=== PATIENT | female | born 2000 | race Caucasian/White ===

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

== ENCOUNTER 2021-02-18 15:18 | Outpatient (REF) | payer OTHER, SELFPAY ==
[2021-02-18 20:07] LABS: Glucose 90 mg/dL (74-106); TSH 1.51 uIU/mL (0.52-4.13)
== END 2021-02-18 15:19 | disposition home or self-care (01) ==
LOC: NCHCN 15:18
PROVIDERS: PCP Physician Assistant Medical; Visit Provider Nurse Practitioner Family
DX: R53.83 Other fatigue (principal); R42 Dizziness and giddiness
CPT/HCPCS: 82947; 84443

== ENCOUNTER 2021-10-31 11:30 | Outpatient (CLI) | payer OTHER, SELFPAY ==
[2021-10-31 12:29] LABS: Abs Immature Grans 0.01 10^3/uL (0.0-0.06); Absolute Basophil Count 0.01 10^3/uL (0.0-0.2); Absolute Eosinophil Count 0.07 10^3/uL (0.0-0.7); Absolute Lymphocyte Count 1.55 10^3/uL (1.2-3.4); Absolute Monocyte Count 0.38 10^3/uL (0.1-0.8); Absolute Neutrophil Count 5.02 10^3/uL (1.2-6.7); Basophils % 0.1; HCT 34.3 % (36.0-46.0); HGB 12.1 g/dL (11.2-15.7); Immature Grans % 0.1; MCH 32.6 pg (27.0-33.0); MCHC 35.3 % (32.0-36.0); MCV 93 fL (80-95); MPV 10.9 fL (8.0-11.0); Monocytes % 5.4; Neutrophils % 71.4; Platelet Count 145 10^3/uL (130-400); RBC 3.71 10^6/uL (3.93-5.22); RDW 12.6 % (11.7-14.6); RDW-SD 42.5 fL; WBC 7.04 10^3/uL (4.4-10.8)
[2021-10-31 13:19] LABS: TSH (W/Ref FT4) 0.77 uIU/mL (0.36-3.74)
[2021-11-01 08:54] LABS: Hepatitis B Surface Ag Negative (Negative)
[2021-11-01 09:31] LABS: HIV-1/2 Ag & Ab Screen Negative (Negative)
[2021-11-01 09:49] LABS: Hepatitis C Ab w Rflx HCV PCR Negative (Negative)
[2021-11-01 11:17] LABS: Varicella IgG Antibody Positive (See Note)
[2021-11-01 11:22] LABS: Rubella IgG Ab (UVM) Positive (See Note)
[2021-11-01 18:50] LABS: Syphilis IgG w/Reflex Nonreactive (Nonreactive)
== END 2021-10-31 11:31 | disposition home or self-care (01) ==
LOC: LBO 11:30
PROVIDERS: PCP Physician Assistant Medical; Visit Provider Advanced Practice Midwife
DX: Z34.91 Encounter for supervision of normal pregnancy, unspecified, first trimester; F41.9 Anxiety disorder, unspecified
CPT/HCPCS: 36415; 86787; 86803; 86850; 86900; 86901; 87340; 87389; 84443; 85025; 86762; 86780; 87086

== ENCOUNTER 2021-10-31 18:35 | Outpatient (REF) | payer OTHER, SELFPAY ==
[2021-10-31 15:36] LABS: *AMPHETAMINES SCREEN URINE Negative (Negative); *BARBITURATES SCREEN URINE Negative (Negative); *BENZODIAZEPINES SCREEN URINE Negative (Negative); Cannabinoids THC Negative (Negative); Cocaine Screen,Urine Negative (Negative); METHADONE URINE SCREEN Negative (Negative); OPIATES URINE SCREEN Negative (Negative)
[2021-10-31 15:37] LABS: Tricyclic Antidepressants Negative (Negative)
[2021-11-07 11:50] LABS: Buprenorphine Negative ng/mL (Cutoff: 5.0); Norbuprenorphine Negative ng/mL (Cutoff: 2.5)
== END 2021-10-31 18:36 | disposition home or self-care (01) ==
LOC: LBN 18:35
PROVIDERS: PCP Physician Assistant Medical; Visit Provider Advanced Practice Midwife
DX: Z34.91 Encounter for supervision of normal pregnancy, unspecified, first trimester (principal); Z3A.13 13 weeks gestation of pregnancy
CPT/HCPCS: 80307; 87086

== ENCOUNTER 2022-01-28 15:16 | Outpatient (REF) | payer OTHER, MEDICAID, SELFPAY | END 2022-01-28 15:17 | disposition home or self-care (01) | LOC: LBN 15:16 | PROVIDERS: PCP Physician Assistant Medical; Visit Provider Advanced Practice Midwife | DX: M54.9 Dorsalgia, unspecified (principal); O99.891 Other specified diseases and conditions complicating pregnancy; N89.8 Other specified noninflammatory disorders of vagina; O26.892 Other specified pregnancy related conditions, second trimester | CPT/HCPCS: 87077; 87086; 87186; 87480; 87510; 87660 ==

== ENCOUNTER 2022-02-11 03:28 | Outpatient (CLI) | payer OTHER, MEDICAID, SELFPAY ==
[2022-02-11 15:47] LABS: HCT 30.5 % (36.0-46.0); HGB 10.3 g/dL (11.2-15.7); MCHC 33.8 % (32.0-36.0); MCV 98 fL (80-95); MPV 10.7 fL (8.0-11.0); Platelet Count 191 10^3/uL (130-400); RBC 3.12 10^6/uL (3.93-5.22); RDW 12.9 % (11.7-14.6); RDW-SD 45.4 fL; WBC 10.25 10^3/uL (4.4-10.8)
[2022-02-11 16:38] LABS: Glucose,1 Hr (Glucola) 99 mg/dL (80-140)
== END 2022-02-11 03:29 | disposition home or self-care (01) ==
LOC: LBO 03:28
PROVIDERS: PCP Physician Assistant Medical; Visit Provider Advanced Practice Midwife
DX: Z34.92 Encounter for supervision of normal pregnancy, unspecified, second trimester (principal)
CPT/HCPCS: 36415; 82950; 85027

== ENCOUNTER 2022-02-11 16:16 | Outpatient (REF) | payer OTHER, MEDICAID, SELFPAY ==
--- NOTE | 2022-02-11 14:30 | PAPNONF_PTH ---
PATIENT: Brandee Ott LOC: [facility] U#:[id number] AGE/SX: 21/F ROOM: RE02/11/[address]: Chelsey Trejo CNM : 2000 BED: DIS: 02/11/2022 SPEC #: [id number] RECD: 02/12/22 13:15 STATUS: DUANE REQ #: [id number] YIFAN: 02/11/22 14:[address]: Chelsey Trejo DEPT: [facility] [place] Cytology RECD BY: Tahmina Carbajal ENTERED: 02/12/22 13:15 SP TYPE: PAPNONF DOTTIE DR: Erika Morales Tissues: 1 - BODY FLUID CYTO(SPUTUM/URINE)[facility] Procedures: BODY FLUID CYTO(URINE/SPUTUM) Comments: [id number] (TOTAL VOLUME = 120 cc) (REFRIGERATED) (60 cc URINE & 50 cc CYTOLYT ADDED IN 2 CONTAINERS)
== END 2022-02-11 16:17 | disposition home or self-care (01) ==
LOC: LBN 16:16
PROVIDERS: PCP Physician Assistant Medical; Visit Provider Advanced Practice Midwife
DX: R93.41 Abnormal radiologic findings on diagnostic imaging of renal pelvis, ureter, or bladder (principal)
CPT/HCPCS: 88104

== ENCOUNTER 2022-02-25 21:07 | Outpatient (REF) | payer OTHER, MEDICAID, SELFPAY | END 2022-02-25 21:08 | disposition home or self-care (01) | LOC: LBN 21:07 | PROVIDERS: PCP Physician Assistant Medical; Visit Provider Advanced Practice Midwife | DX: O26.893 Other specified pregnancy related conditions, third trimester (principal); R30.0 Dysuria; Z3A.29 29 weeks gestation of pregnancy | CPT/HCPCS: 87077; 87086 ==

== ENCOUNTER 2022-03-03 09:44 | Outpatient (CLI) | payer OTHER, MEDICAID, SELFPAY ==
[2022-03-03 10:24] VITALS: BP 98/55; PULSE 78; TEMP 36.8
[2022-03-03 10:30] VITALS: BP 98/55; PULSE 78
--- NOTE | 2022-03-03 10:56 | W.OBNST ---
Date of service: 03/03/22 Time of Service: 10:45 NST Evaluation Reason for NST Reasons for Nonstress Test: OTHER, SEE COMMENT Reason for NST Other: rule out labor Gestational Age Gestational Age in Weeks and Days: 30 Weeks and 4Days Test and Monitor Explained Test/Monitor Explained: Test Explained, Monitor Explained and Patient Verbalized Understanding Vital Signs Blood Pressure: 98/55 Pulse: 78 Temperature: 98.2 F Urine Results Urine Protein: Negative Urine Ketones: Positive Urine Glucose: Negative Urine Blood: Negative NST Information Date on Monitor: 03/03/22 Time on Monitor: 10:23 Date off Monitor: 03/03/22 Time off Monitor: 10:45 Total Time on Monitor: 22 NST Interventions: PO Hydration Contraction Frequency: 0 NST Evaluation Patient States Movement: Present FHR Baseline: 135 Variability: Moderate 6-25 bpm Accelerations: 15x15 Decelerations: None NST Results: Reactive Note NST Note Note: NST is reactive and reassuring. No contractions and patient states she is not uncomfortable like she was before coming to . Denies LOF or bleeding and is aware of movement. Will keep next scheduled appointment. HOLLY NST Reviewed and Verified by: Chelsey Trejo
[2022-03-03 10:57] VITALS: BP 98/55; PULSE 78; TEMP 36.8
== END 2022-03-03 10:54 | disposition home or self-care (01) ==
LOC: BCD 09:48 → OBS 10:19
PROVIDERS: PCP Physician Assistant Medical; Visit Provider Advanced Practice Midwife
DX: O47.03 False labor before 37 completed weeks of gestation, third trimester (principal); Z3A.30 30 weeks gestation of pregnancy
CPT/HCPCS: 59025

== ENCOUNTER 2022-03-11 13:46 | Outpatient (REF) | payer OTHER, MEDICAID, SELFPAY | END 2022-03-11 13:47 | disposition home or self-care (01) | LOC: LBN 13:46 | PROVIDERS: PCP Physician Assistant Medical; Visit Provider Advanced Practice Midwife | DX: O26.893 Other specified pregnancy related conditions, third trimester (principal); R30.0 Dysuria | CPT/HCPCS: 87086 ==

== ENCOUNTER 2022-04-07 15:12 | Observation (INO) | payer OTHER, MEDICAID, SELFPAY ==
[2022-04-07 14:28] VITALS: BP 118/69; PULSE 85
[2022-04-07] MEDS: Lactated Ringers 1,000 ML 1000 ML IV (14:40)
[2022-04-07 14:42] VITALS: BP 118/69; PULSE 85; TEMP 37
[2022-04-07] MEDS: Meclizine 25 MG TAB PO (15:27)
[2022-04-07] MEDS: Lactated Ringers 1,000 ML 125 ML IV (15:38)
[2022-04-07 15:50] LABS: HCT 30.2 % (36.0-46.0); HGB 10.1 g/dL (11.2-15.7); MCH 32.8 pg (27.0-33.0); MCHC 33.4 % (32.0-36.0); MCV 98 fL (80-95); MPV 11.7 fL (8.0-11.0); Platelet Count 159 10^3/uL (130-400); RBC 3.08 10^6/uL (3.93-5.22); RDW 12.7 % (11.7-14.6); RDW-SD 45.5 fL; WBC 8.59 10^3/uL (4.4-10.8)
[2022-04-07 15:55] VITALS: BP 118/69; PULSE 85; TEMP 37
--- NOTE | 2022-04-07 15:55 | W.OBNST ---
Date of service: 04/07/22 Time of Service: 15:55 NST Evaluation Reason for NST Reasons for Nonstress Test: OTHER, SEE COMMENT Reason for NST Other: nausea Gestational Age Gestational Age in Weeks and Days: 35 Weeks and 4Days Test and Monitor Explained Test/Monitor Explained: Test Explained, Monitor Explained and Patient Verbalized Understanding Vital Signs Blood Pressure: 118/69 Pulse: 85 Temperature: 98.6 F Urine Results Urine Protein: Negative Urine Ketones: Negative Urine Glucose: Negative Urine Blood: Negative NST Information Date on Monitor: 04/07/22 Time on Monitor: 14:30 Date off Monitor: 04/07/22 Time off Monitor: 14:53 Total Time on Monitor: 23 NST Interventions: PO Hydration, IV Fluids and Notify Provider Contraction Frequency: none NST Evaluation Patient States Movement: Present FHR Baseline: 125 Variability: Moderate 6-25 bpm Accelerations: 15x15 Decelerations: None NST Results: Reactive Note NST Note Note: NST is reactive and reassuring. NST Reviewed and Verified by: Chelsey Trejo
--- NOTE | 2022-04-07 15:55 | W.PM.OBHPL1 ---
Date of service: 04/07/22 Time of Service: 15:40 Assessment and Plan Assessment and plan (1) Vertigo: Status: Acute Assessment and plan: 1. Pre-eclampsia labs done, serum labs all normal except mild anemia 2. Urine pro/creat pending 3. Dizziness occurs with sitting up or moving head, no nystagmus, better when resting 4. Meclizine 25mg given and IV hydration, if symptoms curb will allow discharge to home with prescription for meclizine prn 5. Has appointment and repeat NST this week. HOLLY (2) Cholestasis during in third trimester: Status: Acute Assessment and plan: 1. recent bild acids mild elevation, itching relieved by ursadiol 2. no bilirubin or liver enzyme elevation noted. KH OB-HPI Labor/Delivery History of Present Illness Reason for Visit: NST Chief Complaint: Other (dizziness with movement). MARVIN Calculator Estimated Delivery Date Method Current WG Current Estimate 05/08/22 LMP (Certain) 35w 4d Other Estimates 05/08/22 Ultrasound #1 35w 4d History of Present Expected Delivery Route/Plan - CNM FOB/fiance - Papito Abdi (first child) BB yes to circ Wants to use the tub Support team, Papito and her mother, Karrie Specific Issues/Plan 1. nausea and vomiting ED visit and prescribed B6. 2. Anxiety - medications in the past. No meds currently 3. Brandee is covid vaccinated, Papito is not. 4. Transferred from [facility] @ 13 wks, seeking CNM care 5. Intracardiac focus seen on anatomy survey; otherwise nml scan 5a. Likely benign finding, will offer [facility] consult, cfDNA results not found in [facility] scanned records 6. At 24 wks developed back pain at work: maternity belt, tylenol, rest, 7. Flank pain and dysuria - urine c&s positive for Staph Sap, MacroBid Rx'ed 7a. Renal US 01/28: mild right hydronephrosis, no calculi noted, incidental finding of thickening of bladder wall and Urology consult ordered - appt scheduled 04/2022 7b. Urine sample sent for cytology=negative for urothelial CA 7c. Symptoms recurred - Macrobid repeated x 2 days. urine Culture pos for Staph Saprophyticus and still symptomatic- cipro escribed 03/02 x 3 days, cranberry recommended daily. 7d. Consult with Nazia Love [employer], consider bactrim if SURJIT positive- SURJIT neg, no RX needed. 8. Vulvitis - vaginal pathogen screen taken- neg 9. Hip and low back pain - History of IT Band syndrome. Referred to PT 10. heartburn unrelieved by mylanta- protonix escribed. Assessment: History Reviewed & Current Review of Systems All systems reviewed & are unremarkable except as noted in HPI and below Constitutional Constitutional: Reports other (dizziness with movement, spinning of room) Eyes Eyes: Reports as per HPI ENT Ears, Nose, Mouth, and Throat: Reports system reviewed and no additional complaints, except as documented Cardiovascular Cardiovascular: Reports as per HPI Respiratory Respiratory: Reports as per HPI and Reports system reviewed and no additional complaints, except as documented Gastrointestinal Gastrointestinal: Reports system reviewed and no additional complaints, except as documented Comments: has nausea at times Genitourinary Genitourinary: Reports system reviewed and no additional complaints, except as documented Musculoskeletal Musculoskeletal: Reports system reviewed and no additional complaints, except as documented Neurologic Neurologic: Reports as per HPI Psychiatric Psychiatric: Reports system reviewed and no additional complaints, except as documented PFSH All Active Problems (Updated 04/07/22 @ 16:09 by Chelsey Trejo CNM) Cholestasis during in third trimester (Acute) Vertigo (Acute) Hip pain (Acute) Dysuria during (Acute) Abnormal ultrasound of bladder (Acute) Acute flank pain (Acute) Back pain affecting (Acute) Anxiety (Chronic) (Acute) Medical History Vaginal discharge during in second trimester Family History Brother Depression Anxiety Sister Anxiety Depression Father Depression Anxiety Alcohol use disorder Mother Anxiety Depression Restless legs Sister Anxiety Depression Maternal Grandmother COPD (chronic obstructive pulmonary disease) Maternal Grandfather Cancer blood cancer Social History Smoking/Tobacco Use Status: Never Smoking risk assessment performed?: Yes History History 2 Para 0 Hx # Term Pregnancies 0 Multiple births 0 Hx # Pregnancies 0 Ectopic pregnancies 0 AB induced 0 Hx Number of Living Children 0 AB spontaneous 1 Past Pregnancies Del. Date GA/Weeks # Preg Succ Route Wgt Sex Labor Lgth Anesthesia Location Prov Complic 04/06/21 Delivery Date: 04/06/21 Last Updated by: Chelsey Oshea CNM SAB Meds Allergies and Home Medications Allergies Allergy/AdvReac Type Severity Reaction Status Date / Time No Known Drug Allergies Allergy Verified 04/07/22 16:03 Home Medications Medication Instructions Recorded Confirmed Type prenat.vits,tra,bit-rpxv-xopnn 1 tab PO DAILY 10/31/21 03/25/22 History docusate sodium 100 mg capsule 100 mg PO BID #60 caps 02/11/22 03/25/22 Rx (Colace) hydrocortisone 2.5 % topical cream 1 applic MA QD-BID PRN hemorrhoids 02/11/22 03/25/22 Rx with perineal applicator #30 grams (Anusol-HC) ferrous sulfate 325 mg (65 mg 325 mg PO DAILY #60 tabs 02/12/22 03/25/22 Rx iron) tablet pantoprazole 40 mg tablet,delayed 40 mg PO DAILY heartburn #30 tabs 03/11/22 03/25/22 Rx release (Protonix) Exam Physical Exam Vital signs: Pulse BP 85 118/69 04/07/22 14:28 04/07/22 14:28 Constitutional Constitutional: no acute distress (at time of system review patient was able to move to BR without difficulty and is able to converse without difficulty for 20 minutes, speach is clear and appropriate, steady gait. ) and average body habitus Detailed Labor and Delivery Exam Gutierres Score: Cervical Points Exam 0 1 2 3 Dilation Closed 1-2cm 3-4 cm 5-6cm Effacement 0-30% 40-50% 60-70% 80% Consistency Firm Medium Soft Station -3 -2 -1,0 +1,+2 Position Posterior Mid Anterior Amniotic Membrane Status: Intact Monitor Mode: External (NST was done and was reactive and reassuring) Contraction Frequency(min): 0 Comments: VE deferred as complaint is not labor related. KH Fetus A Heart Rate Baseline: 130 Monitor Accelerations: 15 X 15 Categories: Category I (on NST done prior to this time. HOLLY) HEENT Exam HEENT Exam: Normal (no nystagmus or complaint of visual changes) Neck Exam Neck Exam: Normal (on visual exam) Chest/Brest/Axilla Exam Chest Exam: Not Done Breast Exam Breast Exam: Not Done Respiratory Exam Respiratory Exam: Normal Cardiovascular Exam Cardiovascular Exam: Normal Abdominal Exam Abdominal Exam: Normal (gravid uterus, size equals dates) Exam Exam: Not Done Extremities Exam Extremities Exam: Normal Back/Spine/Pelvis Exam Back Exam: Not Done Skin Exam Skin Exam: Normal Neurological Exam Neurological Exam: Normal (steady gait, no dizziness at this time. HOLLY) Psychiatric Exam Psychiatric Exam: Normal Additional findings Additional findings: Recently had slightly elevated bile acids, cholestasis, has itching of hands and feet, controlled by ursadiol Results Results Group Beta Strep: Not Done Blood Type: O+ Rubella Status: Immune Varicella Immunity: Immune Abnormal Lab Findings: Abnormal Labs 04/07/22 15:30 RBC 3.08 L Hgb 10.1 L Hct 30.2 L MCV 98 H MPV 11.7 H Additional Findings Results: AST 13, ALT 11, Alk Phos 172, Total Bilirubin 0.2, uric acid 4.1, LDH 116 Risk Assessment Risk for Shoulder Dystocia Historical/Initial OB: NEGATIVE FOR: Pelvic Abnormality, Pre- BMI>30, Previous Shoulder Dystocia or Previous Macrosomia Delivery Plan @ 36wks: NVD. BARRERA Risk for Pre-Eclampsia Date Initiated/Initials: not indicated Yes, if one or more: NEGATIVE FOR: Hx Pre-E/Gest HTN, Chronic HTN, Multiple Gestation, Pre-gestational DM, Renal Disease, Systemic Lupus or APA Syndrome Yes, if 2 or more: POSITIVE FOR: Nulliparity; NEGATIVE FOR: Age>= 35 yrs, >10yr btwn pregnancies, BMI>30, ethinicty, Mother/Sister w/ Pre-E or Previous IUGR Risk for Post- Hemorrhage Initial: NEGATIVE FOR: Multiple Gestation, Previous PPH, Known Clotting Deficiency, Grand Multiparity or Anticoagulation At Risk?: No Risks Reviewed Risks Reviewed Upon Admission: Yes
[2022-04-07 16:00] LABS: ALT 11 U/L (14-59); AST 13 U/L (15-37); Albumin 2.4 g/dL (3.4-5.0); Alkaline Phosphatase 172 U/L (46-116); Anion Gap 6.4 mmol/L (3-11); BUN 9 mg/dL (7-18); Bilirubin, Total 0.2 mg/dL (0.2-1.0); CO2 25.6 mmol/L (21.0-32.0); CREATININE 0.6 mg/dL (0.55-1.02); Calcium 8.4 mg/dL (8.5-10.1); Chloride 107 mmol/L (98-107); Glucose 109 mg/dL (74-106); LDH 116 U/L (81-234); Potassium 3.7 mmol/L (3.5-5.1); Sodium 139 mmol/L (136-145); Uric Acid 4.1 mg/dL (2.6-6.0)
[2022-04-07] MEDS: Pantoprazole 20 MG TABCR PO (16:45)
--- NOTE | 2022-04-07 17:12 | W.PM.OBDISCH ---
Date of service: 04/07/22 Time of Service: 17:12 DS: Diagnosis Discharge Diagnosis (1) Vertigo: Status: Acute Asessment and Plan: 1. Brandee felt better after PO meclizine and IV hydration 2. We discussed possible vertigo and how that can present and management of it, she will report if symptoms worsen 3. Plan referral to ENT for patient for proper diagnosis 4. RX for Meclizine 25mg 3 times daily prn sent to pharmacy 5. Reviewed mild anemia and that she should be vigilent about taking ferrous sulfate and increase now to twice daily, new RX sent. 6. Has appointment in office in 3 days for follow up. Discharge Plan Disposition Patient Disposition: Home Condition: Good Discharge Details Reason For Visit: Dizziness Admit Date/Time: 04/07/22 15:12 Admit Provider: Chelsey Trejo Attending Provider: Chelsey Trejo Primary Care Provider: Morales,Erika [facility] Course Hospital Course: IV hydration and PO meclinzine helped with dizziness, will plan referral to ENT and send patient home on meclizine prn. Home Meds and New Rx's Prescriptions: Continued prenat.vits,tra,jhx-xrdr-gnnod Tablet 1 tab PO DAILY docusate sodium [Colace] 100 mg capsule 100 mg PO BID Qty: 60 3RF hydrocortisone [Anusol-HC] 2.5 % cream with perineal applicator 1 applic IA QD-BID PRN (Reason: hemorrhoids) Qty: 30 0RF pantoprazole [Protonix] 40 mg tablet,delayed release (DR/EC) 40 mg PO DAILY Qty: 30 7RF meclizine 25 mg tablet 25 mg PO TID MDD 3 PRN (Reason: dizziness) Qty: 30 0RF ferrous sulfate 325 mg (65 mg iron) tablet 325 mg PO BID Qty: 60 4RF Rx Instructions: may take every other day if constipation occurs Discharge Instructions Activity:: Activity as Tolerated Equipment/Supplies:: No Equipment Needed Diet:: As Tolerated Discharge Orders Discharge Orders: Discharge Order (Routine); Ordered 04/07/22 Ordered By: Chelsey Trejo OB:DS Summary Contraception Discussed Contraception Discussed: No ( patient), Status at Discharge Functional status at discharge: independent ambulation Overall status at discharge: patient is back to baseline Mental Status: mental status grossly normal Speech and Movement: speech and movement normal Mood: congruent mood Affect: normal affect Time Spent with Patient providing and/or coordinating discharge services: Less than 30 minutes Exam Physical Exam Vital signs: Pulse BP 85 118/69 04/07/22 14:28 04/07/22 14:28 Vital Signs Reviewed: Yes Constitutional Constitutional: no acute distress and average body habitus HEENT Exam HEENT Exam: Normal Neck Exam Neck Exam: Normal (normal visual exam) Respiratory Exam Respiratory Exam: Normal Cardiovascular Exam Cardiovascular Exam: Normal Abdominal Exam Abdomen: Other (gravid, size equals dates. KH) Rectal Exam Rectal Exam: Not Done Exam Patient deferred: external exam, groin exam and perineal exam Extremities Exam Extremity Exam: Normal Back/Spine/Pelvis Exam Back Exam: Not Done Skin Exam Skin Exam: Normal Neurological Exam Neurological Exam: Normal Psychiatric Exam Psychiatric Exam: Normal PFSH All Active Problems (Updated 04/07/22 @ 16:51 by Chelsey Trejo CNM) Vertigo (Acute) Hip pain (Acute) Dysuria during (Acute) Abnormal ultrasound of bladder (Acute) Acute flank pain (Acute) Back pain affecting (Acute) Anxiety (Chronic) (Acute) Medical History Vaginal discharge during in second trimester Family History Brother Depression Anxiety Sister Anxiety Depression Father Depression Anxiety Alcohol use disorder Mother Anxiety Depression Restless legs Sister Anxiety Depression Maternal Grandmother COPD (chronic obstructive pulmonary disease) Maternal Grandfather Cancer blood cancer Social History Smoking/Tobacco Use Status: Never Smoking risk assessment performed?: Yes History History 2 Para 0 Hx # Term Pregnancies 0 Multiple births 0 Hx # Pregnancies 0 Ectopic pregnancies 0 AB induced 0 Hx Number of Living Children 0 AB spontaneous 1 Past Pregnancies Del. Date GA/Weeks # Preg Succ Route Wgt Sex Labor Lgth Anesthesia Location Prov [facility] 04/06/21 Delivery Date: 04/06/21 Last Updated by: Chelsey Oshea CNM SAB DS: Data Vitals/I&O Vitals and I&O: Vital Signs Pulse 85 01/02/23 14:28 Blood Pressure 118/69 04/07/22 14:28 Data Completed and Pending Labs on day of discharge: Labs from last 24 hours 04/07/22 04/07/22 04/07/22 16:13 15:30 15:30 WBC 8.59 RBC 3.08 L Hgb 10.1 L Hct 30.2 L MCV 98 H MCH 32.8 MCHC 33.4 RDW 12.7 Plt Count 159 MPV 11.7 H Sodium 139 Potassium 3.7 Chloride 107 Carbon Dioxide 25.6 Anion Gap 6.4 BUN 9 Creatinine 0.6 Est GFR (CKD-EPI 2020) 131.70 Glucose 109 H Uric Acid 4.1 Calcium 8.4 L Total Bilirubin 0.2 AST 13 L ALT 11 L Alkaline Phosphatase 172 H Lactate Dehydrogenase 116 Total Protein 6.0 L Albumin 2.4 L Ur Random Creatinine Pending U Random Total Protein Pending U [place] Prot/Creat Ratio Pending
[2022-04-07 17:15] LABS: COMMENT (LAB VIEW ONLY) 16.27 mg/dL; PROTEIN < 6.0 mg/dL
== END 2022-04-07 17:25 | disposition home or self-care (01) ==
LOC: OBS 15:53
PROVIDERS: Admitting Provider Advanced Practice Midwife; PCP Physician Assistant Medical; Visit Provider Advanced Practice Midwife
DX: O26.893 Other specified pregnancy related conditions, third trimester (principal); R42 Dizziness and giddiness; Z3A.35 35 weeks gestation of pregnancy; O99.013 Anemia complicating pregnancy, third trimester; D64.9 Anemia, unspecified; O99.343 Other mental disorders complicating pregnancy, third trimester; F41.9 Anxiety disorder, unspecified
CPT/HCPCS: 36415; 80053; 85027; 96360; 59025; 82565; 83615; 84156; 84550

== ENCOUNTER 2022-04-10 16:09 | Outpatient (REF) | payer OTHER, MEDICAID, SELFPAY ==
[2022-04-10 13:28] LABS: *AMPHETAMINES SCREEN URINE Negative (Negative); *BARBITURATES SCREEN URINE Negative (Negative); *BENZODIAZEPINES SCREEN URINE Negative (Negative); Cannabinoids THC Negative (Negative); Cocaine Screen,Urine Negative (Negative); METHADONE URINE SCREEN Negative (Negative); OPIATES URINE SCREEN Negative (Negative)
[2022-04-10 13:35] LABS: Tricyclic Antidepressants Negative (Negative)
[2022-04-18 11:15] LABS: Buprenorphine Negative ng/mL (Cutoff: 5.0); Norbuprenorphine Negative ng/mL (Cutoff: 2.5)
== END 2022-04-10 16:10 | disposition home or self-care (01) ==
LOC: LBN 16:09
PROVIDERS: PCP Physician Assistant Medical; Visit Provider Advanced Practice Midwife
DX: Z34.93 Encounter for supervision of normal pregnancy, unspecified, third trimester (principal)
CPT/HCPCS: 80307; 80348; 87081

== ENCOUNTER 2022-04-22 20:13 | Outpatient (REF) | payer OTHER, MEDICAID, SELFPAY ==
[2022-04-22 19:53] LABS: COMMENT (LAB VIEW ONLY) 156.52 mg/dL; PROTEIN 22.6 mg/dL; Prot/Crea Ur Ratio 0.14
== END 2022-04-22 20:14 | disposition home or self-care (01) ==
LOC: LBN 20:13
PROVIDERS: PCP Physician Assistant Medical; Visit Provider Advanced Practice Midwife
DX: O12.03 Gestational edema, third trimester (principal); Z3A.37 37 weeks gestation of pregnancy
CPT/HCPCS: 82565; 84156

== ENCOUNTER 2022-04-24 17:08 | Inpatient (IN) | payer OTHER, MEDICAID, SELFPAY ==
[2022-04-24] VITALS (18 sets, daily range): BP systolic 95–155; BP diastolic 54–85; PULSE 73–123; RESP 16–94; TEMP 36.3–36.8; O2SAT 82–100
--- NOTE | 2022-04-24 17:11 | HPE_ITS ---
Date of service: 04/24/22 Time of Service: 16:45 Assessment and Plan Assessment and plan (1) Full-term PROM with onset of labor within 24 hours of rupture: Status: Acute Assessment and plan: 1. Admit to 2. Baseline monitor tracing obtained 3. Admission lab CBC and type and screen as well as COVID test 4. Will defer IV access unless patient desires medication or epidural or augmentation of labor is needed 5. Expectant management with intermittent doppler heart rate 6. Expect vaginal delivery. OB-HPI Labor/Delivery History of Present Illness Chief Complaint: Uterine Contractions; Suspected Rupture of Membranes , Associated Signs and Symptoms of Suspected ROM: leaking clear fluid from vagina . MARVIN Calculator Estimated Delivery Date Method Current WG Current Estimate 05/08/22 LMP (Certain) 38w 0d Other Estimates 05/08/22 Ultrasound #1 38w 0d Comments: Brandee presents with SROM at 1545 today with large gush of clear fluid. Contractions began shortly after. She is accompanied by her , Papito, and plans to have her Mother with her for support in labor as well. Reports active baby. No other concerns. History of Present Expected Delivery Route/Plan - CNM FOB/fiance - Papito Abdi (first child) BB yes to circ Wants to use the tub Support team, Papito and her mother, Saturnino. Has not taken childbirth class. GBS negative Specific Issues/Plan 1. nausea and vomiting ED visit and prescribed B6. 2. Anxiety - medications in the past. No meds currently 3. Brandee is covid vaccinated, Papito is not. 4. Transferred from [facility] @ 13 wks, seeking CN care 5. Intracardiac focus seen on anatomy survey; otherwise nml scan 5a. Likely benign finding, will offer [facility] consult, cfDNA results not found in [facility] scanned records 6. At 24 wks developed back pain at work: maternity belt, tylenol, rest, 7. Flank pain and dysuria - urine c&s positive for Staph Sap, MacroBid Rx'ed 7a. Renal US 01/28: mild right hydronephrosis, no calculi noted, incidental finding of thickening of bladder wall and Urology consult ordered - appt scheduled 04/2022 7b. Urine sample sent for cytology=negative for urothelial CA 7c. Symptoms recurred - Macrobid repeated x 2 days. urine Culture pos for Staph Saprophyticus and still symptomatic- cipro escribed 03/02 x 3 days, cranberry recommended daily. 7d. Consult with Nazia Love [employer], consider bactrim if SURJIT positive- SURJIT neg, no RX needed. 8. Hip and low back pain - History of IT Band syndrome. Referred to PT 9. heartburn unrelieved by mylanta- protonix escribed. 10. Vertigo like symptoms, referral to ENT, Meclizine 25 mg TID prn and Zofran prn- did not continue meclizine as her symptoms subsided. 11. pedal edema - BP 110/64 urine dip - trace protein , recommended stopping work. Assessment: History Reviewed & Current Informed Consent Informed Consent: Augmentation of Labor (risks, benefits and alternatives to augmentation reviewed if needed. HOLLY) Review of Systems All systems reviewed & are unremarkable except as noted in HPI and below Genitourinary Genitourinary: Reports as per HPI PFSH All Active Problems (Updated 04/24/22 @ 17:21 by Chelsey Trejo CNM) Full-term PROM with onset of labor within 24 hours of rupture (Acute) Vertigo (Acute) Hip pain (Acute) Dysuria during (Acute) Abnormal ultrasound of bladder (Acute) Acute flank pain (Acute) Back pain affecting (Acute) Anxiety (Chronic) (Acute) Medical History Vaginal discharge during in second trimester Family History Brother Depression Anxiety Sister Anxiety Depression Father Depression Anxiety Alcohol use disorder Mother Anxiety Depression Restless legs Sister Anxiety Depression Maternal Grandmother COPD (chronic obstructive pulmonary disease) Maternal Grandfather Cancer blood cancer Social History Smoking/Tobacco Use Status: Never Smoking risk assessment performed?: Yes History History 2 Para 0 Hx # Term Pregnancies 0 Multiple births 0 Hx # Pregnancies 0 Ectopic pregnancies 0 AB induced 0 Hx Number of Living Children 0 AB spontaneous 1 Past Pregnancies Del. Date GA/Weeks # Preg Succ Route Wgt Sex Labor Lgth Anesth esia Location Prov Complic 04/06/21 Delivery Date: 04/06/21 Last Updated by: Chelsey Oshea CNM SAB Meds Allergies and Home Medications Allergies Allergy/AdvReac Type Severity Reaction Status Date / Time No Known Drug Allergies Allergy Verified 04/24/22 17:18 Home Medications Medication Instructions Recorded Confirmed Type prenat.vits,tra,kgg-vsfx-rybsh 1 tab PO DAILY 10/31/21 04/24/22 History docusate sodium 100 mg capsule 100 mg PO BID #60 caps 02/11/22 04/24/22 Rx (Colace) hydrocortisone 2.5 % topical cream 1 applic UT QD-BID PRN hemorrhoids 02/11/22 04/24/22 Rx with perineal applicator #30 grams (Anusol-HC) pantoprazole 40 mg tablet,delayed 40 mg PO DAILY heartburn #30 tabs 03/11/22 04/24/22 Rx release (Protonix) ferrous sulfate 325 mg (65 mg 325 mg PO BID #60 tabs 04/07/22 04/24/22 Rx iron) tablet meclizine 25 mg tablet 25 mg PO TID PRN dizziness #30 tabs 04/07/22 04/24/22 Rx Exam Constitutional Constitutional: mild distress and average body habitus Detailed Labor and Delivery Exam Dilation: 1.5 Effacement (%): 80 station: -2 Position: LOP Cervix position: posterior Consistency: soft Hoang Score: Cervical Points Exam 0 1 2 3 Dilation Closed 1-2cm 3-4 cm 5-6cm Effacement 0-30% 40-50% 60-70% 80% Consistency Firm Medium Soft Station -3 -2 -1,0 +1,+2 Position Posterior Mid Anterior HOANG Score(Cervical Ripeness Score): 7 Amniotic Membrane Status: Ruptured Rupture Method: Spontaneous Monitor Mode: External Contraction Frequency(min): 1-3 minutes Contraction Duration(sec): 30-45 Contraction Intensity: Mild Fetus A Heart Rate Baseline: 125 Monitor Accelerations: 15 X 15 Monitor Decelerations: None Variability: Moderate (6-25 BPM) Categories: Category I Est. Weight: 7 lb Date of Membrane Rupture: 04/24/22 Time of Membrane Rupture: 15:45 HEENT Exam HEENT Exam: Normal Neck Exam Neck Exam: Normal Chest/Brest/Axilla Exam Chest Exam: Normal Breast Exam Breast Exam: Normal Respiratory Exam Respiratory Exam: Normal Cardiovascular Exam Cardiovascular Exam: Normal Abdominal Exam Abdominal Exam: Normal (gravid, size equals dates) Rectal Exam Rectal Exam: Not Done Exam Exam: Normal (leaking clear fluid vaginally. ) Extremities Exam Extremities Exam: Normal Back/Spine/Pelvis Exam Back Exam: Normal Pelvis Adequate: Yes Skin Exam Skin Exam: Normal Neurological Exam Neurological Exam: Normal Psychiatric Exam Psychiatric Exam: Normal Results Results Group Beta Strep: Negative Blood Type: O+ Rubella Status: Immune Varicella Immunity: Immune Lab Results: GC CT neg, syphilis neg, Hep B&C neg,HIV neg, UDS negative X 2 in , declined Panorama cfDNA Risk Assessment Risk for Shoulder Dystocia Historical/Initial OB: NEGATIVE FOR: Pelvic Abnormality, Pre- BMI>30, Previous Shoulder Dystocia or Previous Macrosomia 40 Weeks: NEGATIVE FOR: EFW> 4500 gms, Maternal Weight Gain >40lb or Post Dates Delivery Plan @ 36wks: NVD. HOLLY Delivery Plan @ 40 wks: EDDIED Risk for Pre-Eclampsia Date Initiated/Initials: not indicated Yes, if one or more: NEGATIVE FOR: Hx Pre-E/Gest HTN, Chronic HTN, Multiple Gestation, Pre-gestational DM, Renal Disease, Systemic Lupus or APA Syndrome Yes, if 2 or more: POSITIVE FOR: Nulliparity; NEGATIVE FOR: Age>= 35 yrs, >10yr btwn pregnancies, BMI>30, ethinicty, Mother/Sister w/ Pre-E or Previous IUGR Risk for Post- Hemorrhage Initial: NEGATIVE FOR: Multiple Gestation, Previous PPH, Known Clotting Deficiency, Grand Multiparity or Anticoagulation At Risk?: No Date/Initials: 04/24/22 Risks Reviewed Risks Reviewed Upon Admission: Yes
--- NOTE | 2022-04-24 17:26 | W.OBNST ---
Date of service: 04/24/22 Time of Service: 16:45 NST Evaluation Reason for NST Reasons for Nonstress Test: OTHER, SEE COMMENT Reason for NST Other: SROM? Gestational Age Gestational Age in Weeks and Days: 38 Weeks and 0Days Test and Monitor Explained Test/Monitor Explained: Test Explained, Monitor Explained and Patient Verbalized Understanding NST Information Date on Monitor: 04/24/22 Time on Monitor: 16:54 Date off Monitor: 04/24/22 Time off Monitor: 17:16 Total Time on Monitor: 22 Contraction Frequency: 2-3 NST Evaluation Patient States Movement: Present FHR Baseline: 130 Variability: Moderate 6-25 bpm Accelerations: 15x15 Decelerations: None NST Results: Reactive Note N/A NST Note Note: NST is reactive and reassuring. Will admit due to PROM with onset of labor < 24 hours. Expect NVD. KH NST Reviewed and Verified by: Chelsey Trejo
[2022-04-24 17:34] LABS: Source Nasal/Nares
[2022-04-24 17:37] LABS: HCT 32.5 % (36.0-46.0); HGB 11.2 g/dL (11.2-15.7); MCH 32.5 pg (27.0-33.0); MCHC 34.5 % (32.0-36.0); MCV 94 fL (80-95); MPV 12.7 fL (8.0-11.0); Platelet Count 165 10^3/uL (130-400); RBC 3.45 10^6/uL (3.93-5.22); RDW 12.7 % (11.7-14.6); RDW-SD 43.8 fL; WBC 10.13 10^3/uL (4.4-10.8)
[2022-04-24 18:04] LABS: COVID-19 PCR Negative (Negative)
--- NOTE | 2022-04-24 21:11 | W.PM.OBNL1 ---
Date of service: 04/24/22 Time of Service: 21:11 Informed Consent Informed Consent: Augmentation of Labor (risks, benefits and alternatives to augmentation reviewed if needed. HOLLY) Pelvic Exam Dilation: 4 Effacement (%): 90 station: 0 Cervix Position: posterior Contractions Monitor Mode: Palpation Contraction Frequency(min): 2-3 Contraction Duration(sec): 45-60 Intensity: Moderate/Strong Fetus A Monitor: Doppler Heart Rate Baseline: 120 Assessment Note: recent 15 minute tracing CAT I Assessment and Plan Assessment and plan (1) Full-term PROM with onset of labor within 24 hours of rupture: Status: Acute Assessment and plan: 1. Discussed pain management options. Brandee declines epidural at this time and began using nitrous oxide with good relief. 2. Emotional support offered 3. Continue present management, expect NVD. Objective Abnormal lab results 04/24/22 Range/Units 17:25 RBC 3.45 L (3.93-5.22) 10^6/uL Hct 32.5 L (36.0-46.0) % MPV 12.7 H (8.0-11.0) fL Temp Pulse Resp BP Pulse Ox 97.9 F 87 16 95/54 L 82 L 04/24/22 20:30 04/24/22 21:09 04/24/22 19:41 04/24/22 21:09 04/24/22 20:39 Laboratory Results WBC 10.13 10^3/uL (4.4-10.8) 04/24/22 17:25 RBC 3.45 10^6/uL (3.93-5.22) L 04/24/22 17:25 Hgb 11.2 g/dL (11.2-15.7) 04/24/22 17:25 Hct 32.5 % (36.0-46.0) L 04/24/22 17:25 MCV 94 fL (80-95) 04/24/22 17:25 MCH 32.5 pg (27.0-33.0) 04/24/22 17:25 MCHC 34.5 % (32.0-36.0) 04/24/22 17:25 RDW 12.7 % (11.7-14.6) 04/24/22 17:25 Plt Count 165 10^3/uL (130-400) 04/24/22 17:25 MPV 12.7 fL (8.0-11.0) H 04/24/22 17:25 COVID-19 Source Nasal/Nares 04/24/22 17:20 SARS-CoV-2 (PCR) Negative (Negative) 04/24/22 17:20 Patient ABO/Rh O Positive 04/24/22 17:25 Antibody Screen NEGATIVE 04/24/22 17:25 Vital Signs Reviewed: Yes Subjective Interval history since last seen: Branede is experiencing more pain in her lower back and rectal area. Requested VE. Using nitrous oxide with good relief. KH Results Hemoglobin/Hematocrit: Hgb 11.2 g/dL (11.2-15.7) 04/24/22 17:25 Hct 32.5 % (36.0-46.0) L 04/24/22 17:25 Abnormal Lab Findings: Abnormal Labs 04/24/22 17:25 RBC 3.45 L Hct 32.5 L MPV 12.7 H
[2022-04-24] MEDS: Oxytocin 10 UNITS/ML VIAL IM (22:39)
--- NOTE | 2022-04-24 23:05 | OBVDS_ITS ---
Date of service: 04/24/22 Time of Service: 23:05 OB Labor/ Delivery Information Baby A Delivery Delivery Method: Spontaneaous Presentation: Cephalic Cephalic Position: Vertex Vertex Position: Right Occipital Anterior Cord Description-Baby A: 3 Vessels and Clamped/Cut Amniotic Fluid: Clear Estimated Blood Loss: 150 Delivery Outcome: Liveborn Infant Complications: none Transferred: Remains with Mother Note: Adriana presented in labor with SROM that happened at 1545. She progressed from 1.5 to 4 cm with FHR initial tracing CAT I and then remained 110 to 120 for baseline by doppler for remainder of labor and delivery. Brandee used nitrous oxide and position changes with good relief and progressed to 10 cm 0 station at 2213. She pushed with excellent effort and delivered a live male over intact perineum at 2238. Baby was brought skin to skin and positive family bonding was noted immediately. 10 units of Pitocin was given IM. Cord bloods obtained after cord was double clamped and cut by FOB once pulsations stopped at approximately 5 minutes of life. Placenta delivered spontaneously, intact at 2246. Placenta was inspected and cord insertion was noted to be marginal and vessels inserted in membranes in keeping with velementous cord insertion. Fundus firmed to U-1 with massage. EBL 150cc. Sponge, needle and instrument count are correct. Brandee plans to breast feed. She and Papito would like baby yogesh Dubon to have circumcision. They plan to use Paragard IUD for contraception to be inserted at 6 week PP visit. Baby scores were 9 at 1 and 5 minutes of live. Baby's weight 6lb 13.7oz. Expect normal PP course with discharge 04/26/22. Providers Nurse Travel Registered Nurse Nicu: Chelsey Trejo Nurse: Ajit Abdullahi Nurse: Madeleine Swain Labor/Delivery Information Number of Babies in Womb: 1 Steroids Given: None Reason Steroids Not Administered: N/A Group Beta Strep: Negative Antibiotics Administered: No Rubella Status: Immune Blood Type: O+ Varicella Immunity: Immune Maternal Complications: None Shoulder Dystocia: No Stages of Labor Onset of Labor Date: 04/24/22 Onset of Labor Time: 15:45 Complete Dilatation Date: 04/24/22 Complete Dilatation Time: 22:13 Labor - Stage 1 Duration: 6 hours and 28 minutes ROM Baby A: 04/24/22 ROM Baby A: 15:45 ROM Total Time- Baby A: [id number] Infant Delivery Date-Baby A: 04/24/22 Infant Delivery Time-Baby A: 22:38 Labor Stage 2 Duration: 25 minutes Placenta Delivery Date-Baby A: 04/24/22 Placenta Delivery Time-Baby A: 22:46 Labor-Stage 3 Duration: 8 minutes Total Length of Labor-Baby A: 6 hours and 53 minutes Placenta Cultured: No Placenta Status: Delivered Baby A Infant Gender: Male Gestational Status: Term (39-41.6 wks) Gestational Age in Weeks/Days: 38 Weeks and 0 Days Score-1 Minute Interval(Baby A) Heart Rate-1 minute: 100 BPM or Greater Respiratory Effort- 1 minute: Spontaneous/Strong Cry Muscle Tone-1 minute: Active Movement Reflex Response-1 minute: Prompt Response Color-1 minute: Bluish Hands or Feet Total Score-1 minute: 9 Score-5 Minute Interval(Baby A) Heart Rate- 5 minute: 100 BPM or Greater Respiratory Effort-5 minute: Spontaneous/Strong Cry Muscle Tone-5 minute: Active Movement Reflex Response-5 minute: Prompt Response Color-5 minute: Bluish Hands or Feet Total Score- 5 minute: 9
[2022-04-25] VITALS (7 sets, daily range): BP systolic 105–123; BP diastolic 57–69; PULSE 88–111; RESP 16; TEMP 36.6–37.1; O2SAT 96–99
[2022-04-25] MEDS: Acetaminophen 325 MG TAB 650 MG PO ×2 (05:22→20:12)
[2022-04-25] MEDS: Ibuprofen 600 MG TAB PO (08:17)
--- NOTE | 2022-04-25 09:16 | W.PM.OBPNV1 ---
Date of service: 04/25/22 Time of Service: 08:30 Assessment and Plan Assessment and plan (1) care following vaginal delivery: Status: Acute Assessment and plan: 1. Normal PP course to date, is independent in ADL's. Voiding without difficulty 2. Continue present management, expect discharge 04/26/22 (2) Lactating mother: Status: Acute Assessment and plan: 1. Breast feeding support and education given. She is aware of hand expression and is able to bring colostrum to nipple tip easily 2. Continue present management. KH Exam Physical Exam Vital signs: Temp Pulse Resp BP Pulse Ox 97.9 F 88 16 105/65 99 04/25/22 08:25 04/25/22 08:25 04/25/22 08:25 04/25/22 08:25 04/25/22 04:21 Vital Signs Reviewed: Yes Constitutional Constitutional: no acute distress HEENT Exam HEENT Exam: Normal Neck Exam Neck Exam: Normal (normal visual inspection) Respiratory Exam Respiratory Exam: Normal Cardiovascular Exam Cardiovascular Exam: Normal Abdominal Exam Abdomen: Other (normal exam) Fundal Exam Fundus: Below Umbilicus and Firm Comment: small lochia noted. Rectal Exam Rectal Exam: Not Done Exam Perineum: Intact and Normal Extremities Exam Extremity Exam: Normal (denies calf tenderness) and Full ROM Back/Spine/Pelvis Exam Back Exam: Normal Skin Exam Skin Exam: Normal Neurological Exam Neurological Exam: Normal Psychiatric Exam Psychiatric Exam: Normal Results Hemoglobin/Hematocrit: Hgb 11.2 g/dL (11.2-15.7) 04/24/22 17:25 Hct 32.5 % (36.0-46.0) L 04/24/22 17:25 Abnormal Lab Findings: Abnormal Labs 04/24/22 17:25 RBC 3.45 L Hct 32.5 L MPV 12.7 H
[2022-04-26 01:06] VITALS: BP 122/80; PULSE 95; RESP 16; TEMP 36.4; O2SAT 99
--- NOTE | 2022-04-26 08:42 | W.PM.OBDISCH ---
Date of service: 04/26/22 Time of Service: 08:43 DS: Diagnosis Discharge Diagnosis (1) care following vaginal delivery: Status: Acute Asessment and Plan: 1. Normal PP course. Patient is somewhat tearful this morning but she reports they are tears of marcello not sadness and that she is tired. 2. Discussed PPD and warning signs and to call if symptoms do not imrpove with rest at home 3. Plan discharge today and RTO in 2 and 6 weeks PP 4. Is planning IUD Paragard at 6 week PP visit. HOLLY (2) Lactating mother: Status: Acute Asessment and Plan: 1. Baby is nursing more often now and latch is getting easier for her. 2. She is working with LC in relation to her pump 3. To follow up with Pediatric provider and scheduled and RTO at [facility] in 2 weeks. Discharge Plan Disposition Patient Disposition: Home Condition: Good Discharge Details Reason For Visit: Spontaneous Rupture of [place] Admit Date/Time: 04/24/22 17:08 Admit Provider: Chelsey Trejo Attending Provider: Chelsey Trejo Primary Care Provider: Erika Morales Hospital Course Hospital Course: Normal labor and delivery of live male infant over intact perineum. Normal PP course. Breast feeding is improving and patient has planned follow up. HOLLY Home Meds and New Rx's Prescriptions: Continued prenat.vits,tra,[id number] Tablet 1 tab PO DAILY docusate sodium [Colace] 100 mg capsule 100 mg PO BID Qty: 60 3RF hydrocortisone [Anusol-HC] 2.5 % cream with perineal applicator 1 applic OH QD-BID PRN (Reason: hemorrhoids) Qty: 30 0RF pantoprazole [Protonix] 40 mg tablet,delayed release (DR/EC) 40 mg PO DAILY Qty: 30 7RF ferrous sulfate 325 mg (65 mg iron) tablet 325 mg PO BID Qty: 60 4RF Rx Instructions: may take every other day if constipation occurs Discontinued meclizine 25 mg tablet 25 mg PO TID MDD 3 PRN (Reason: dizziness) Qty: 30 0RF Discharge Instructions Stand Alone Forms: BC Instructions, BC Post Vaginal Deliver Activity:: Activity as Tolerated Equipment/Supplies:: No Equipment Needed Diet:: As Tolerated Discharge Orders Discharge Orders: Discharge Order (Routine); Ordered 04/26/22 Ordered By: Chelsey Trejo OB:DS Summary Summary Vaginal Delivery Method: Spontaneaous Episiotomy Description: None Laceration Extension: N/A Contraception Discussed Contraception Discussed: Yes (plans Paragard at 6 week PP visit), [place] Infant Gender-Baby A: Male weight: 6 lb 13.702 oz Status at Discharge Functional status at discharge: independent ambulation Overall status at discharge: patient is back to baseline Mental Status: mental status grossly normal Speech and Movement: speech and movement normal Mood: congruent mood Affect: normal affect Time Spent with Patient providing and/or coordinating discharge services: Less than 30 minutes Exam Physical Exam Vital signs: Temp Pulse Resp BP Pulse Ox 97.6 F 95 H 16 122/80 99 04/26/22 01:06 04/26/22 01:06 04/26/22 01:06 04/26/22 01:06 04/26/22 01:06 Vital Signs Reviewed: Yes Constitutional Constitutional: no acute distress, average body habitus and cooperative HEENT Exam HEENT Exam: Normal Neck Exam Neck Exam: Normal (normal visual inspection) Respiratory Exam Respiratory Exam: Normal Cardiovascular Exam Cardiovascular Exam: Normal Abdominal Exam Abdomen: Other (normal exam) Fundal Exam Fundus: Below Umbilicus and Firm Comment: small lochia noted. KH Rectal Exam Rectal Exam: Not Done Exam Perineum: Intact and Normal Extremities Exam Extremity Exam: Normal (denies calf tenderness) and Full ROM Back/Spine/Pelvis Exam Back Exam: Normal Skin Exam Skin Exam: Normal Neurological Exam Neurological Exam: Normal Psychiatric Exam Psychiatric Exam: Normal PFSH All Active Problems Lactating mother (Acute) care following vaginal delivery (Acute) Hip pain (Acute) Abnormal ultrasound of bladder (Acute) Anxiety (Chronic) Medical History Acute flank pain Back pain affecting Dysuria during Full-term PROM with onset of labor within 24 hours of rupture Vaginal discharge during in second trimester Vertigo Family History Brother Depression Anxiety Sister Anxiety Depression Father Depression Anxiety Alcohol use disorder Mother Anxiety Depression Restless legs Sister Anxiety Depression Maternal Grandmother COPD (chronic obstructive pulmonary disease) Maternal Grandfather Cancer blood cancer Social History Smoking/Tobacco Use Status: Never Smoking risk assessment performed?: Yes Alcohol Intake: never Do you feel safe at home: Yes Do you feel safe in your relationship?: Yes History History 2 Para 0 Hx # Term Pregnancies 0 Multiple births 0 Hx # Pregnancies 0 Ectopic pregnancies 0 AB induced 0 Hx Number of Living Children 0 AB spontaneous 1 Past Pregnancies Del. Date GA/Weeks # Preg Succ Route Wgt Sex Labor Lgth Anesthesia Location Prov Complic 04/06/21 Delivery Date: 04/06/21 Last Updated by: Chelsey Oshea CNM SAB DS: Data Vitals/I&O Vitals and I&O: Vital Signs Temperature 97.6 F 04/26/22 01:06 Pulse 95 H 04/26/22 01:06 Pulse Rhythm Regular 04/26/22 01:06 Respiratory Rate 16 04/26/22 01:06 Respiratory Depth Normal 04/26/22 01:06 Blood Pressure 122/80 04/26/22 01:06 Blood Pressure Mean 94 04/26/22 01:06 Pulse Oximetry 99 04/26/22 01:06 Oxygen Delivery Method Room Air 04/24/22 17:49 Oxygen Flow Rate 0 04/24/22 17:49 Pain Level 2 04/25/22 21:12 Intake & Output 04/25/22 04/25/22 04/26/22 11:59 23:59 11:59 Output Total 1600 / 1600 600 / 600 Balance -1600 / -1600 -600 / -600 Output: Urine 1600 / 1600 600 / 600 Other: Urine Color Yellow Bright Red Urine Appearance Clear Clear Urine Odor None Voiding Methods Toilet Toilet
[2022-04-26] MEDS: Pantoprazole 40 MG TABCR PO (10:14)
[2022-04-26] MEDS: Ferrous Sulfate 325 MG TAB PO (10:16)
[2022-04-26] MEDS: Docusate Sodium 100 MG CAP PO (10:16)
[2022-04-26 11:00] VITALS: BP 103/69; PULSE 95; RESP 14; TEMP 36.7; O2SAT 95
[2022-04-26 13:30] VITALS: BP 111/72; PULSE 101; RESP 14; TEMP 36.7; O2SAT 97
== END 2022-04-26 15:05 | disposition home or self-care (01) | DRG 807 ==
LOC: OBS 17:12 → BCD 04-28 14:12 → OBS 04-28 14:12
PROVIDERS: Admitting Provider Advanced Practice Midwife; PCP Physician Assistant Medical; Visit Provider Advanced Practice Midwife
DX: O42.02 Full-term premature rupture of membranes, onset of labor within 24 hours of rupture (principal); Z37.0 Single live birth; Z3A.38 38 weeks gestation of pregnancy; O99.344 Other mental disorders complicating childbirth; F41.9 Anxiety disorder, unspecified; O43.123 Velamentous insertion of umbilical cord, third trimester
CPT/HCPCS: 85027; 86850; 86900; 86901; 87635; J2590

== ENCOUNTER 2022-08-19 15:15 | Outpatient (REF) | payer OTHER, MEDICAID, SELFPAY ==
[2022-08-21 13:50] LABS: Chlamydia Result Negative (Negative); GC Result Negative (Negative)
== END 2022-08-19 15:16 | disposition home or self-care (01) ==
LOC: LBN 15:15
PROVIDERS: PCP Physician Assistant Medical; Visit Provider Advanced Practice Midwife
DX: Z11.3 Encounter for screening for infections with a predominantly sexual mode of transmission (principal); Z30.09 Encounter for other general counseling and advice on contraception
CPT/HCPCS: 87491; 87591

== ENCOUNTER 2022-09-10 12:49 | Outpatient (REF) | payer OTHER, MEDICAID, SELFPAY | END 2022-09-10 12:50 | disposition home or self-care (01) | LOC: LBN 12:49 | PROVIDERS: PCP Physician Assistant Medical; Visit Provider Advanced Practice Midwife | DX: N89.8 Other specified noninflammatory disorders of vagina (principal) | CPT/HCPCS: 87480; 87510; 87660 ==

== ENCOUNTER 2023-07-27 15:54 | Outpatient (REF) | payer OTHER, MEDICAID, SELFPAY ==
--- NOTE | 2023-07-27 15:00 | PAPFT_PTH ---
PATIENT: Brandee Ott LOC: [facility] U#:[id number] AGE/SX: 22/F ROOM: RE07/27/[address]: Chelsey Trejo CNM : 2000 BED: DIS: 07/27/2023 SPEC #: [id number] RECD: 07/27/23 18:18 STATUS: DUANE REQ #: [id number] YIFAN: 07/27/23 15:[address]: Chelsey Trejo DEPT: [facility] Cytology RECD BY: Tahmina Carbajal ENTERED: 07/27/23 18:18 SP TYPE: PAPFT OTHR DR: Erika Morales Tissues: 1 - CX/ENDOCX FOR PAP SMEARS Procedures: PAP THIN PREP/UVM Screening HPV DNA PROBE Comments: [id number]
[2023-07-29 14:02] LABS: Chlamydia Result Negative (Negative); GC Result Negative (Negative)
== END 2023-07-27 15:55 | disposition home or self-care (01) ==
LOC: LBN 15:54
PROVIDERS: PCP Physician Assistant Medical; Visit Provider Advanced Practice Midwife
DX: N89.8 Other specified noninflammatory disorders of vagina (principal)
CPT/HCPCS: 87491; 87591; 88142; 87480; 87510; 87624; 87660

== ENCOUNTER 2023-11-04 15:31 | Outpatient (REF) | payer OTHER, MEDICAID, SELFPAY ==
[2023-11-05 11:43] LABS: Chlamydia Result Negative (Negative); GC Result Negative (Negative)
== END 2023-11-04 15:32 | disposition home or self-care (01) ==
LOC: LBN 15:31
PROVIDERS: PCP Physician Assistant Medical; Visit Provider Advanced Practice Midwife
DX: N89.8 Other specified noninflammatory disorders of vagina (principal); Z11.3 Encounter for screening for infections with a predominantly sexual mode of transmission; B37.9 Candidiasis, unspecified; B96.89 Other specified bacterial agents as the cause of diseases classified elsewhere
CPT/HCPCS: 87491; 87591; 87480; 87510; 87660

== ENCOUNTER 2023-11-18 17:12 | Outpatient (CLI) | payer OTHER, MEDICAID, SELFPAY ==
[2023-11-18 16:44] LABS: HCG Quant, Pregnancy 25 mIU/mL (1-3)
== END 2023-11-18 17:13 | disposition home or self-care (01) ==
LOC: LBO 17:13
PROVIDERS: PCP Physician Assistant Medical; Visit Provider Advanced Practice Midwife
DX: N92.6 Irregular menstruation, unspecified (principal)
CPT/HCPCS: 36415; 84702

== ENCOUNTER 2023-12-28 16:19 | Outpatient (CLI) | payer OTHER, MEDICAID, SELFPAY ==
[2023-12-28 17:18] LABS: HCG Quant, Pregnancy 5045 mIU/mL (1-3)
== END 2023-12-28 16:20 | disposition home or self-care (01) ==
LOC: LBO 16:23
PROVIDERS: PCP Physician Assistant Medical; Visit Provider Advanced Practice Midwife
DX: O20.9 Hemorrhage in early pregnancy, unspecified (principal); N92.6 Irregular menstruation, unspecified; Z34.90 Encounter for supervision of normal pregnancy, unspecified, unspecified trimester
CPT/HCPCS: 36415; 84702

== ENCOUNTER 2024-08-08 12:00 | Outpatient (REF) | payer OTHER, MEDICAID, SELFPAY ==
--- NOTE | 2024-08-08 11:15 | PAPFT_PTH ---
PATIENT: Brandee Ott LOC: [facility] U#:[id number] AGE/SX: 23/F ROOM: RE08/08/[address]: Rosalba Carroll : 2000 BED: DIS: 08/08/2024 SPEC #: [id number] RECD: 08/08/24 17:46 STATUS: DUANE RERebecca #: [id number] YIFAN: 08/08/24 11:[address]: Rosalba Carroll DEPT: [facility] Cytology RECD BY: Tahmina Carbajal ENTERED: 08/08/24 17:46 SP TYPE: PAPFT OTHR DR: Erika Morales Tissues: 1 - CX/ENDOCX FOR PAP SMEARS Procedures: PAP THIN PREP/UVM Screening Comments: [id number]
== END 2024-08-08 12:01 | disposition home or self-care (01) ==
LOC: LBN 12:00
PROVIDERS: PCP Physician Assistant Medical; Visit Provider Advanced Practice Midwife
DX: Z12.4 Encounter for screening for malignant neoplasm of cervix (principal); Z72.51 High risk heterosexual behavior
CPT/HCPCS: 88142

== ENCOUNTER 2024-08-10 13:14 | Outpatient (CLI) | payer OTHER, MEDICAID, SELFPAY ==
--- NOTE | 2024-08-10 | DI.US_ITS ---
Exam(s) US RENAL PELVIC TRANSVAGINAL EXAM: US RENAL PELVIC TRANSVAGINAL CLINICAL HISTORY: left flank pain, iud location TECHNIQUE: Ultrasound of the pelvis was performed both transabdominal and transvaginal. COMPARISON: US US RENAL from 01/28/2022 FINDINGS: KIDNEYS: Both kidneys exhibit normal size. Right kidney measures 9.3 cm length and left kidney measu res 10.5 cm length. There are no cysts nor solid renal masses nor shadowing calculi. No hydronephro sis on either side at this time. I note that there was mild right-sided hydronephrosis on prior ultr asound examination of January 2022. URINARY BLADDER: Prevoid volume is 53 cc and postvoid volume is 0. Both ureterovesical jets were blanquita ntified. There is no discernible mass evident in the urinary bladder on the present study. There ar e no shadowing calculi in the urinary bladder lumen. UTERUS: Anteverted Measures 8.7 cm length x 4.0 cm AP x 5.6 cm wide. There are no uterine fibroids. Endometrial thickness measures 6 mm. There is an IUD in place within the endometrial canal which is in satisfactory position. There is no fluid in the endometrial canal. No endometrial polyps evident. CERVIX: There are no obvious nabothian cysts. RIGHT OVARY: Measures 3.2 x 2.3 x 2.7 cm There is a cyst in the right ovary measuring 2.6 by 1.4 by 2.0 cm. Appears simple; probably follicul ar. No surrounding fluid. LEFT OVARY: Measures 3.7 x 1.9 x 2.0 cm No significant cysts nor masses evident in the left ovary. Contains sub cm follicular cysts. CUL-DE-SAC: No free fluid evident. IMPRESSION: 1. There is an IUD in satisfactory position in the endometrial canal. No other uterine findings. 2. There is a 2.6 x 1.4 x 2.0 cm simple appearing cyst in the right ovary which is probably a follicu lar cyst. No surrounding fluid in the adnexal regions nor in the cul-de-sac. 3. Normal appearing kidneys with no hydronephrosis at this time (as was evident on ultrasound examina tion of January 2022). DATA REPOSITORY:
[2024-08-10 14:07] VITALS: BP 101/63; PULSE 85; RESP 18; TEMP 36.5
[2024-08-10 14:10] LABS: Lactate 0.7 mmol/L (<or=2.0)
[2024-08-10 14:12] LABS: Abs Immature Grans 0.02 10^3/uL (0.0-0.06); Absolute Basophil Count 0.01 10^3/uL (0.0-0.2); Absolute Eosinophil Count 0.26 10^3/uL (0.0-0.7); Absolute Lymphocyte Count 2.02 10^3/uL (1.2-3.4); Absolute Monocyte Count 0.61 10^3/uL (0.1-0.8); Absolute Neutrophil Count 6.85 10^3/uL (1.2-6.7); Basophils % 0.1 %; Eosinophils % 2.7 %; HCT 36.3 % (36.0-46.0); HGB 12.6 g/dL (11.2-15.7); Immature Grans % 0.2 %; Lymphocytes % 20.7 %; MCH 32.1 pg (27.0-33.0); MCHC 34.7 % (32.0-36.0); MCV 93 fL (80-95); MPV 10.6 fL (8.0-11.0); Monocytes % 6.2 %; Neutrophils % 70.1 %; Platelet Count 193 10^3/uL (130-400); RBC 3.92 10^6/uL (3.93-5.22); RDW 11.9 % (11.7-14.6); RDW-SD 40.2 fL; WBC 9.77 10^3/uL (4.4-10.8)
--- NOTE | 2024-08-10 14:24 | PGE_ITS ---
Date of Service Date of service: 08/10/24 Time of Service: 14:24 Assessment and Plan Assessment and plan (1) Acute abdominal pain in left flank: Status: Acute (2) IUD surveillance: Status: Acute (3) Abdominal pain: Status: Acute Assessment and plan: A: 23 yo with IUD insertion 48 hrs ago r/o uterine perforation, r/o left nephrolithiasis r/o endometritis vs toxic shock sx vs PID P: CBC, CMP, HCG, pelvic and renal ultrasound UA negative, bloodwork negative, nml WBC Ultrasound of kidneys and pelvis are nml, IUD in proper position Discussed status with Dr. Carlson and Dr. Sepulveda Will discharge pt to home with review of warning sx, GC/CT swab sent/pending Plan of care is to have pt in office tomorrow for repeat vital signs and exam Subjective Subjective Interval history since last seen: Pt called last night reporting Paragard IUD insertion /, then yesterday began having sweating, general bodyaches, lower abdominal pain, and nausea. Denied vomiting, heavy vaginal bleeding, and did not take her temperature, was using tylenol for pain. Advised to consider going to the ED if she felt she had a high fever, shortness of breath, or worsening abdominal pain. Pt was able to sleep the night but today her lower abdominal pain is worse even though her bodyaches are gone, reports left flank pain. Has not taken tylenol or motrin today, was able to eat without vomiting. Walking and moving is painful. Advised to report to center for pelvic exam, blood tests and ultrasound to r/o IUD perforation and kidney stone. Exam Narrative Exam Narrative: Pt appears uncomfortable, holding abd with both hands Const General: cooperative and acute distress mild Nutritional Appearance: average body habitus Orientation: alert, awake and oriented x3 Chest Chest: normal inspection of the chest Resp Effort & Inspection: normal respiratory effort and able to speak in complete sentences Cardio Rate: regular rate Rhythm: regular rhythm GI Inspection: normal to inspection Palpation: guarding and tender Auscultation: normal bowel sounds External Female Exam: normal external appearance Speculum Exam - Vagina: normal appearance of the vagina and normal vaginal discharge Speculum Exam - Cervix: normal appearance of the cervix, closed and other (IUD strings visible at os) Bimanual Exam- Vagina & Uterus: cervical motion tenderness and tender Other: generalized lower abd tenderness, poor tolerance of palpation Skin General skin exam: no rashes or lesions noted and elasticity normal Extrem General: normal to inspection, full ROM and normal gait Psych Mood: congruent mood Affect: normal affect Attitude: cooperative Thought Process: normal Objective Last Vital Signs Temp 97.7 F 08/10/24 14:07 Pulse 85 08/10/24 14:07 Resp 18 08/10/24 14:07 BP 101/63 08/10/24 14:07 Laboratory Results - last 24 hr 08/10/24 08/10/24 13:54 14:04 WBC 9.77 RBC 3.92 L Hgb 12.6 Hct 36.3 MCV 93 MCH 32.1 MCHC 34.7 RDW 11.9 Plt Count 193 MPV 10.6 Immature Gran % 0.2 Neutrophils % 70.1 Lymphocytes % 20.7 Monocytes % 6.2 Eosinophils % 2.7 Basophils % 0.1 Nucleated RBC % 0.0 Absolute Neutrophils 6.85 H Absolute Lymphocytes 2.02 Absolute Monocytes 0.61 Absolute Eosinophils 0.26 Absolute Basophils 0.01 VBG Lactate 0.7 Creatinine Cancelled Est GFR (CKD-EPI 2020) Cancelled Reviewed Pertinent PMH: Yes Objective Narrative Objective Narrative: Afebrile, normotensive Time Spent with Patient Time Spent with Patient: 25-34 minutes Time was spent: preparing to see the patient(eg.review tests), obtaining and/or reviewing separately otained hiistory, ordering medications,tests, procedures, referring, communicating with other health intensive care nurse, indepentently interpreting results and counseling the patient
[2024-08-10 14:28] LABS: ALT 20 U/L (14-59); AST 15 U/L (15-37); Albumin 3.7 g/dL (3.4-5.0); Alkaline Phosphatase 77 U/L (46-116); Anion Gap 7.8 mmol/L (3-11); BUN 12 mg/dL (7-18); Bilirubin, Total 0.3 mg/dL (0.2-1.0); CO2 25.2 mmol/L (21.0-32.0); CREATININE 0.7 mg/dL (0.55-1.02); Chloride 104 mmol/L (98-107); Estimated GFR 125.33 (mL/min/1.73m2); Glucose 83 mg/dL (74-106); Potassium 3.7 mmol/L (3.5-5.1); Sodium 137 mmol/L (136-145); Total Protein 7.3 g/dL (6.4-8.2)
[2024-08-10 14:35] LABS: HCG Quant, Pregnancy < 1 mIU/mL (1-3)
[2024-08-10 16:10] LABS: Bilirubin Negative (Negative); Blood Negative (Negative); Clarity Clear (Clear); Glucose Negative (Negative); Ketones Negative (Negative); Leukocyte Esterase Trace (Negative); Nitrite Negative (Negative); Urobilinogen 0.2 mg/dL (Up to 0.2)
[2024-08-10 16:14] VITALS: BP 96/63; PULSE 69; RESP 17; TEMP 36.6
[2024-08-10 16:16] LABS: Bacteria Few HPF (Negative); C & S Indicated? No; Crystals Negative HPF (Negative); Epithelial Cells Many HPF (Negative); Mucus Negative (Negative); RBC 0-2 HPF (0-2); WBC 0-2 HPF (0-5)
[2024-08-12 11:09] LABS: Chlamydia Result Negative (Negative); GC Result Negative (Negative)
== END 2024-08-10 16:17 ==
LOC: BCD 13:31 → OBS 14:00
PROVIDERS: PCP Physician Assistant Medical; Visit Provider Advanced Practice Midwife
DX: R10.9 Unspecified abdominal pain (principal); Z30.431 Encounter for routine checking of intrauterine contraceptive device
CPT/HCPCS: 36415; 76770; 80053; 87491; 87591; 76830; 76856; 81003; 81015; 82565; 83605; 84702; 85025

== ENCOUNTER 2024-12-13 14:00 | Outpatient (REF) | payer OTHER, MEDICAID, SELFPAY ==
[2024-12-14 12:34] LABS: Chlamydia Result Negative (Negative); GC Result Negative (Negative)
== END 2024-12-13 14:01 | disposition home or self-care (01) ==
LOC: LBN 14:00
PROVIDERS: Visit Provider Obstetrics & Gynecology
DX: Z70.8 Other sex counseling (principal)
CPT/HCPCS: 87491; 87591; 87480; 87510; 87660

== ENCOUNTER 2025-01-19 10:49 | Outpatient (CLI) | payer OTHER, MEDICAID, SELFPAY ==
[2025-01-19 17:17] LABS: HCG Quant, Pregnancy 2 mIU/mL (1-3)
== END 2025-01-19 10:50 | disposition home or self-care (01) ==
LOC: LBO 02-14 10:49
PROVIDERS: Visit Provider Advanced Practice Midwife
DX: N91.0 Primary amenorrhea (principal)
CPT/HCPCS: 36415; 84702